=== PATIENT | female | born 1945 | race Hispanic/Latino ===

== ENCOUNTER 2017-09-11 13:52 | Emergency (ER) | payer MEDICARE, OTHER ==
[2017-09-11 14:12] VITALS: BP 189/92
--- NOTE | 2017-09-11 15:08 | XRay Report ---
FACIAL BONES: Trauma, pain. Multiple views of the facial bones fail to show any fractures or other bony abnormalities. The maxillary sinuses are clear. IMPRESSION: Normal study.
--- NOTE | 2017-09-11 16:29 | Emergency Department Report ---
Chief Complaint: Fall Stated Complaint: FALL - HPI History of Present Illness: 72-year-old female presents with complaint of facial pain status post mechanical fall. Patient states she fell forward after tripping and landed on her jaw and nose. States she has been bleeding intermittently out of her nose. Denies any pain at this moment. Awake alert and oriented 3 accompanied by . Denies injury to any other body part. Denies loss of consciousness. Denies being on blood thinners. - ROS Review of Systems: She has been in usual state of health otherwise - Exam Vital Signs: Vital Signs 09/11/17 14:08 Temperature 97.9 F Pulse Rate 74 Respiratory 18 Rate Blood Pressure 189/92 O2 Sat by Pulse 97 Oximetry Physical Exam: Abrasion on anterior nose. Slight jaw pain on palpation MSE screening note: Focused history and physical exam performed. Due to findings the following was ordered: Screening Assessment/Plan/Differential Dx: Fall injury, facial contusion 1- This initial assessment/diagnostic orders/clinical plan/ treatment(s) is/are subject to change based on pt's health status, clinical progression and re- assessment by fellow clinical providers in the ED. Further treatment and workup at subsequent clinical provers discretion. Patient/guardians urged not to elope from ED as their condition may be serious if not clinically assessed and managed. 2-CT face, CT C-spine as patient did mention some neck pain. Patient denies loss of consciousness and only complaining of pain lower face no indication for full head CT at this time 3- 4- ED Disposition for MSE Condition: Stable Referrals: PRIMARY CARE, [Primary Care Provider] - 3-5 Days
[2017-09-11] MEDS ORDERED: TYLENOL PO ONE (17:28)
--- NOTE | 2017-09-11 17:28 | Cat Scan Report ---
FINAL REPORT EXAM: CT HEAD/BRAIN WO CON HISTORY: s/p fall, head injury TECHNIQUE: CT of the Head without IV contrast. PRIORS: None currently available. FINDINGS: Decreased attenuation regions in the periventricular and subcortical white matter are nonspecific and may represent small vessel ischemic disease, encephalopathy, edema, or a demyelinating process. Small vessel ischemic disease is more likely. Vascular calcifications. There is no evidence for acute ischemia. There is no hemorrhage. There is no midline shift. There is no hydrocephalus. There is no mass. Age appropriate marroquin-white matter attenuation is noted. There is no calvarial fracture. The temporal bones demonstrate aerated mastoid air cells. The middle ears appear unremarkable. Paranasal sinuses are unremarkable. Globes are intact. IMPRESSION: No acute intracranial findings. Chronic ischemic disease.
--- NOTE | 2017-09-11 17:30 | Cat Scan Report ---
FINAL REPORT EXAM: CT FACIAL BONES WO CON HISTORY: facial pain status post fall TECHNIQUE: CT of the maxillofacial region without IV contrast. Coronal and sagittal reconstructed images were provided. PRIORS: None currently available. FINDINGS: The globes are intact. There is no vitreous hemorrhage. The lenses are unremarkable. There is no retinal hemorrhage. The retro-bulbar regions are grossly negative. There is no orbital osseous fracture. Paranasal sinuses are developed. The paranasal osseous structures are intact. Nasal bridge appears intact. The nasal septum is mildly deviated to the right. There is no zygomatic arch fracture. There is no fracture of the pterygoid plates. There is no fracture of the mandible. There is no fracture the temporomandibular joints. Temporal bones are unremarkable. Mastoid air cells are aerated. IMPRESSION: No acute osseous findings.
--- NOTE | 2017-09-11 17:35 | Cat Scan Report ---
FINAL REPORT EXAM: CT CERVICAL SPINE WO CON HISTORY: neck pain s/p fall TECHNIQUE: CT of the Cervical Spine without IV contrast. Coronal and sagittal reformatted images were provided. PRIORS: None currently available. FINDINGS: There is no fracture. There is no atlantooccipital dislocation. Occipitocervical joint is intact. C1-C2: [id number] arthritis. Mild exostosis. No significant subluxation. C2-C3: No significant canal or foraminal narrowing. C3-C4: Minimal grade 1 anterior subluxation. Symmetrical bulge. Left uncovertebral and facet arthropathy. Severe left foraminal narrowing. Right foramina intact. No significant canal narrowing. C4-C5: Symmetrical bulge. Right uncovertebral arthropathy. Moderate to severe right foraminal narrowing. Left foramina is intact. Mild spinal canal narrowing. C5-C6: Mild grade 1 posterior subluxation. Symmetrical disc osteophyte complex. Bilateral uncovertebral arthropathy. [id number] spinal canal narrowing. Indentation of the ventral cord. Moderate to severe bilateral foraminal narrowing. C6-C7: Minimal grade 1 posterior subluxation. Symmetrical disc osteophyte complex. Right paracentral disc osteophyte protrusion. Mild to moderate spinal canal narrowing with indentation of the ventral cord. Bilateral uncovertebral arthropathy. Moderate to severe bilateral foraminal narrowing. C7-T1: No significant canal or foraminal narrowing. Prevertebral soft tissue structures are unremarkable. Low-density lesion in the right thyroid gland measures 2.1 cm. IMPRESSION: No acute fracture. Multilevel degenerative discs.
--- NOTE | 2017-09-11 17:44 | Emergency Department Report ---
ED Head Trauma HPI - General Chief complaint: Fall Stated complaint: FALL Time Seen by Provider: 09/11/17 16:44 Source: patient Mode of arrival: Ambulatory Limitations: No Limitations - History of Present Illness Initial comments: 72-year-old female past medical history hypertension presents with complaint of nasal pain and nosebleed N and tooth pain status post mechanical fall. Patient states she accidentally tripped and fell forward. States she hit her nose and her front upper incisor on the ground. Denies loss of any teeth. States she was bleeding intermittently from nose. Denies being on any blood thinners. Patient is awake alert and oriented 3 not in acute distress accompanied by at bedside. States she has some neck aching. Denies any paresthesias in upper or lower extremities. Denies any chest pain or abdominal pain. Patient is ambulatory without assistance. Is fully lucid and able to provide a detailed history. No blurry vision reported by patient. Minimal headache reported primarily complaining of pain near her teeth and nose. Complaining of slight pain lower jaw she has a visible contusion at the distal tip of her nose. Patient states she received a tetanus vaccine 7 years ago. MD Complaint: head pain -: This afternoon Mechanism of Injury: mechanical fall Location: frontal, mandible Severity: moderate Severity scale (0 -10): 6 Quality: aching Consistency: constant Other Injuries: dental, neck - Related Data Previous Rx's Medication Instructions Recorded Last Taken Type Acetaminophen [Acetaminophen TAB] 500 mg PO Q6HR PRN #20 tablet 09/11/17 Unknown Rx Chlorhexidine Mouthwash [Peridex] 15 ml MM BID #1 bottle 09/11/17 Unknown Rx HYDROcodone/APAP 5-325 [[place] 1 each PO Q6HR PRN #5 tablet 09/11/17 Unknown Rx 5/325] Allergies/Adverse reactions: Allergies Allergy/AdvReac Type Severity Reaction Status Date / Time Penicillins Allergy Hives Verified 09/11/17 14:08 Sulfa (Sulfonamide Allergy Unknown Verified 09/11/17 14:08 Antibiotics) codeine AdvReac Headache Verified 09/11/17 14:08 ED Review of Systems ROS: Stated complaint: FALL Other details as noted in HPI Constitutional: denies: chills, fever Eyes: denies: eye pain, eye discharge, vision change ENT: denies: ear pain, throat pain Respiratory: denies: cough, shortness of breath, wheezing Cardiovascular: denies: chest pain, palpitations Endocrine: no symptoms reported Gastrointestinal: denies: abdominal pain, nausea, diarrhea Genitourinary: denies: urgency, dysuria, discharge Musculoskeletal: denies: back pain, joint swelling, arthralgia Skin: denies: rash, lesions Neurological: denies: headache, weakness, paresthesias Psychiatric: denies: anxiety, depression Hematological/Lymphatic: denies: easy bleeding, easy bruising ED Past Medical Hx - Past Medical History Hx Hypertension: Yes - Surgical History Hx Cholecystectomy: Yes Hx Appendectomy: Yes Additional Surgical History: HYSTERECTOMY - Social History Smoking Status: Never Smoker Substance Use Type: None - Medications Home Medications: Home Medications Medication Instructions Recorded Confirmed Last Taken Type Acetaminophen [Acetaminophen TAB] 500 mg PO Q6HR PRN #20 tablet 09/11/17 Unknown Rx Chlorhexidine Mouthwash [Peridex] 15 ml MM BID #1 bottle 09/11/17 Unknown Rx HYDROcodone/APAP 5-325 [[place] 1 each PO Q6HR PRN #5 tablet 09/11/17 Unknown Rx 5/325] ED Physical Exam - General Limitations: No Limitations General appearance: alert, in no apparent distress - Head Head exam: Present: atraumatic, normocephalic - Expanded Head Exam Expanded Head exam: Present: contusion (patient has a contusion on her distal nose with slight abrasion.) 1 - Slight abrasion here - Eye Eye exam: Present: normal appearance, PERRL, EOMI - ENT ENT exam: Present: mucous membranes moist - Expanded ENT Exam Expanded Teeth exam: Present: dental tenderness # 1 - Dental Tenderness (tenderness here. Incisor is firm on palpation not moving on palpation noted slight bleeding at the gumline.) - Neck Neck exam: Present: normal inspection - Respiratory Respiratory exam: Present: normal lung sounds bilaterally. Absent: respiratory distress - Cardiovascular Cardiovascular Exam: Present: regular rate, normal rhythm. Absent: systolic murmur, diastolic murmur, rubs, gallop - GI/Abdominal GI/Abdominal exam: Present: soft, normal bowel sounds - Extremities Exam Extremities exam: Present: normal inspection - Back Exam Back exam: Present: normal inspection - Neurological Exam Neurological exam: Present: alert, oriented X3 - Psychiatric Psychiatric exam: Present: normal affect, normal mood - Skin Skin exam: Present: warm, dry, intact, normal color. Absent: rash ED Course Vital Signs 09/11/17 09/11/17 14:08 17:48 Temperature 97.9 F Pulse Rate 74 Respiratory 18 20 Rate Blood Pressure 189/92 O2 Sat by Pulse 97 Oximetry - NEXUS Criteria Focal neurological deficit present: No Midline spinal tenderness present: Yes NEXUS results: C-Spine cannot be cleared clinically by these results. Imaging is required. Critical care attestation.: If time is entered above; I have spent that time in minutes in the direct care of this critically ill patient, excluding procedure time. ED Disposition Clinical Impression: Deviated septum, Toothache, Nosebleed, Minor head injury Nasal abrasion Qualifiers: Encounter type: initial encounter Qualified Code(s): S00.31XA - Abrasion of nose, initial encounter Disposition: TO HOME OR SELFCARE Is pt being admited?: No Does the pt Need Aspirin: No Condition: Stable Instructions: Toothache (ED), Acute dental trauma (ED), Abrasion (ED), Epistaxis (ED), Concussion (ED) Additional Instructions: Patient states she will follow-up with her physicians where she lives in [place] Prescriptions: Acetaminophen [Acetaminophen TAB] 500 mg PO Q6HR PRN #20 tablet PRN Reason: Toothache Chlorhexidine Mouthwash [Peridex] 15 ml MM BID #1 bottle HYDROcodone/APAP 5-325 [[place] 5/325] 1 each PO Q6HR PRN #5 tablet PRN Reason: Pain Referrals: PRIMARY CARE,MD [Primary Care Provider] - 3-5 Days Time of Disposition: 18:01
[2017-09-11] MEDS ORDERED: TRIPLE ANTIBIOTIC TP ONE (17:57)
== END 2017-09-11 18:14 | disposition home or self-care (01) ==
LOC: ED 13:52
DX: S00.31XA Abrasion of nose, initial encounter (principal); S09.90XA Unspecified injury of head, initial encounter; J34.2 Deviated nasal septum; K08.89 Other specified disorders of teeth and supporting structures; I10 Essential (primary) hypertension; W18.30XA Fall on same level, unspecified, initial encounter; Y93.89 Activity, other specified; Y92.89 Other specified places as the place of occurrence of the external cause; Y99.8 Other external cause status
CPT/HCPCS: 70150; 70450; 70486; 72125; A6250